=== PATIENT | male | born 1985 | race Caucasian/White ===

== ENCOUNTER 2022-05-10 14:24 | Emergency (ER) | payer OTHER ==
[~2022-05-10] VITALS: Ht 172 cm; Wt 68.0 kg
--- NOTE | 2022-05-10 15:13 | ED General ---
General Chief Complaint: Head/Cervical Problems Stated Complaint: HEADACHES | TROUBLE BREATHING | DARK STOOLS Nursing Triage Note: PT CO OF [facility], STATES HAS L SIDED HEAD PAIN. STARTED FOR A FEW MONTHS AND WORSE THIS AM RATES 9/10 AT THIS X. PT HAS NUMBEROUS OTHER CO FOR A FEW WEEKS, INTERMITTENT C/P, BLACK STOOLS FOR A WEEK OR SO. Source of Information: Patient, Family Exam Limitations: No Limitations History of Present Illness Date Seen by Provider: May 10, 2022 Time Seen by Provider: 15:00 Initial Comments Patient is a 36-year-old male who presents to the emergency room with multiple somatic complaints. He has had headache off and on for months, intermittent chest discomfort, intermittent black stools. He also mentions some weight loss and problems with balance and coordination. No visual complaints no speech difficulties no unilateral numbness weakness or tingling. He has not seen his primary care doctor for the symptoms. He took some Tylenol and ibuprofen given to him by his mother today for his symptoms. He points to the left posterior parietal aspect of his scalp as the location of his headache. The chest pain is nonspecific, nonradiating and not precipitated by exertion. He states he did have chest pain today as well as black stool. He vapes. No medications for hypertension. He has a family history of a maternal uncle who had a brain tumor and he is very concerned that he needs a CAT scan or an MRI to rule this out. He does endorse fever to 101. Occasional congestion. He is COVID vaccinated not fully vaccinated. He mentions that he feels like he has trouble regulating his temperature and this has been going on for a couple of years. His mother is also concerned because his hands "turn reddish-purple" occasionally. All other review of systems reviewed and negative except as stated. Timing/Duration: 1 Week, Other (complaints worse in the last week but intermittent for a month) Severity: Moderate Associated Systoms: Chest Pain, Fever/Chills, Headaches, Malaise, Shortness of Air, Weakness Allergies and Home Medications Allergies Coded Allergies: Sulfa (Sulfonamide Antibiotics) (Verified Allergy, Unknown, 05/10/22) cefaclor (Verified Allergy, Unknown, 05/10/22) Uncoded Allergies: PCN (Allergy, Unknown, 05/10/22) Patient Home Medication List Home Medication List Reviewed: Yes Review of Systems Review of Systems Constitutional: see HPI, fever, malaise Respiratory: no symptoms reported Cardiovascular: chest pain Gastrointestinal: other (black stool) Genitourinary: no symptoms reported Musculoskeletal: no symptoms reported Skin: change in color Psychiatric/Neurological: Headache All Other Systems Reviewed Negative Unless Noted: Yes Past Tevjexf-Sardua-Gabcuu Hx Patient Social History Tobacco Use?: No Use of E-Cig and/or Vaping dev: Yes E-Cig or Vaping type used: Nicotine Use of E-Cig and/or Vaping Tony: Current Everyday User Substance use?: No Alcohol Use?: No Immunizations Up To Date Influenza Vaccine Up-to-Date: No; Not Current First/Initial COVID19 Vaccinat: Y Second COVID19 Vaccination Billy: Y COVID19 Vaccine Chips Screen Tender: CEDRIC Physical Exam Vital Signs Vital Signs - First Documented 05/10/22 14:50 Pulse 117 Resp 18 B/P (MAP) 119/86 (97) Capillary Refill : Less Than 3 Seconds Height, Weight, BMI Height: '" Weight: lbs. oz. kg; 22.00 BMI Method: General Appearance: No Apparent Distress, WD/WN Eyes: Bilateral Eye Normal Inspection, Bilateral Eye PERRL, Bilateral Eye EOMI HEENT: PERRL/EOMI, TMs Normal, Pharynx Normal Neck: Full Range of Motion, Normal Inspection, Non Tender, Supple Respiratory: Lungs Clear, Normal Breath Sounds, No Accessory Muscle Use, No Respiratory Distress Cardiovascular: Regular Rate, Rhythm, Normal Peripheral Pulses Gastrointestinal: Normal Bowel Sounds, Non Tender, Soft Genital/Rectal: Normal Rectal Exam, Heme Negative Stool Back: Normal Inspection Extremity: Normal Capillary Refill, Normal Inspection, Normal Range of Motion, Non Tender, No Calf Tenderness, No Pedal Edema Neurologic/Psychiatric: Alert, Oriented x3, No Motor/Sensory Deficits, Normal Mood/Affect, lead sustainability specialist II-XII Norm as Tested; No Abnormal Cerebellar Tests, No Abnormal Gait, No EOM Palsy, No Facial Droop, No Motor Weakness, No Sensory Deficit; Other (negative romberg; no promator drift. normal finger to nose) Skin: Normal Color, Warm/Dry Progress/Results/Core Measures Suspected Sepsis SIRS Temperature: Pulse: 117 Respiratory Rate: 18 Laboratory Tests 05/10/22 15:15: White Blood Count 11.6H Blood Pressure 119 /86 Mean: 97 Laboratory Tests 05/10/22 15:15: Creatinine 0.78, Platelet Count 262, Total Bilirubin 0.3 Results/Orders Lab Results Laboratory Tests Test 05/10/22 15:15 Range/Units White Blood Count 11.6 H 4.3-11.0 10^3/uL Red Blood Count 3.82 L 4.30-5.52 10^6/uL Hemoglobin 11.9 L 13.3-17.7 g/dL Hematocrit 35 L 40-54 % Mean Corpuscular Volume 91 80-99 fL Mean Corpuscular Hemoglobin 31 25-34 pg Mean Corpuscular Hemoglobin Concent 34 32-36 g/dL Red Cell Distribution Width 13.2 10.0-14.5 % Platelet Count 262 130-400 10^3/uL Mean Platelet Volume 10.5 9.0-12.2 fL Immature Granulocyte % (Auto) 0 % Neutrophils (%) (Auto) 76 H 42-75 % Lymphocytes (%) (Auto) 17 12-44 % Monocytes (%) (Auto) 6 0-12 % Eosinophils (%) (Auto) 0 0-10 % Basophils (%) (Auto) 0 0-10 % Neutrophils # (Auto) 8.8 H 1.8-7.8 10^3/uL Lymphocytes # (Auto) 1.9 1.0-4.0 10^3/uL Monocytes # (Auto) 0.7 0.0-1.0 10^3/uL Eosinophils # (Auto) 0.0 0.0-0.3 10^3/uL Basophils # (Auto) 0.0 0.0-0.1 10^3/uL Immature Granulocyte # (Auto) 0.0 0.0-0.1 10^3/uL Sodium Level 136 135-145 MMOL/L Potassium Level 3.7 3.6-5.0 MMOL/L Chloride Level 105 98-107 MMOL/L Carbon Dioxide Level 22 21-32 MMOL/L Anion Gap 9 5-14 MMOL/L Blood Urea Nitrogen 26 H 7-18 MG/DL Creatinine 0.78 0.60-1.30 MG/DL Estimat Glomerular Filtration Rate 119 BUN/Creatinine Ratio 33 Glucose Level 108 H 70-105 MG/DL Calcium Level 8.9 8.5-10.1 MG/DL Corrected Calcium 9.1 8.5-10.1 MG/DL Total Bilirubin 0.3 0.1-1.0 MG/DL Aspartate Amino Transf (AST/SGOT) 16 5-34 U/L Alanine Aminotransferase (ALT/SGPT) 19 0-55 U/L Alkaline Phosphatase 53 40-136 U/L Total Protein 6.0 L 6.4-8.2 GM/DL Albumin 3.8 3.2-4.5 GM/DL Influenza Type A (RT-PCR) Not Detected Not Detecte Influenza Type B (RT-PCR) Not Detected Not Detecte SARS-CoV-2 RNA (RT-PCR) Not Detected Not Detecte My Orders Orders - MICHELLE VICKERS MD Ed Iv/Invasive Line Start (05/10/22 15:11) Cbc With Automated Diff (05/10/22 15:11) Comprehensive Metabolic Panel (05/10/22 15:11) Covid 19 Inhouse Test (05/10/22 15:11) Fecal Occult Bedside (05/10/22 15:11) Influenza A And B By Pcr (05/10/22 15:11) Isolation Central Supply Req (05/10/22 15:11) Ns Iv 1000 Ml (Sodium Chloride 0.9%) (05/10/22 15:15) Ketorolac Injection (Toradol Injection) (05/10/22 15:15) Ct Head Wo (05/10/22 16:02) Medications Given in ED Current Medications Medications Dose Ordered Sig/Katja Route Start Time Stop Time Status Last Admin Dose Admin Ketorolac Tromethamine 30 mg ONCE ONCE IVP 05/10/22 15:15 05/10/22 15:16 DC 05/10/22 15:23 30 MG Vital Signs/I&O 05/10/22 14:50 Pulse 117 Resp 18 B/P (MAP) 119/86 (97) Capillary Refill : Less Than 3 Seconds Blood Pressure Mean: 97 Progress Note : Time: 15:58 Progress Note Notified by the patient's nurse MARIA D Tejeda that the patient's color became very pale/celaya. He became profusely diaphoretic. This is shortly after the Toradol given. His heart rate went from the 120 range down to 60s. His blood pressure dropped from 120 systolic to 88 systolic. He was profusely diaphoretic, no respiratory distress. He states he just became tingly and weak all over. Mom reports that she was allergic to Toradol. Patient had no hives. No wheezing. No respiratory distress, shortness of breath. No alteration in awareness. IV fluids were hung as the patient initially declined them. Oxygen saturations re mained 100% on room air. Diagnostic Imaging Diagonstic Imaging: CT Comments [facility]. [place], [place] NAME: ISAIAH BURNHAM [facility] REC#: [id number] PT STATUS: REG ER : 1985 PHYSICIAN: MICHELLE VICKERS MD ADMIT DATE: 05/10/22/ER Draft Date of Exam:05/10/22 CT HEAD WO INDICATION: Atypical headache, balance issues. TECHNIQUE: Multiple contiguous axial images were obtained through the brain without the use of intravenous contrast. Auto Exposure Controls were utilized during the CT exam to meet ALARA standards for radiation dose reduction. COMPARISON: Comparison made to prior head CT of 05/11/2021. FINDINGS: There were no extra-axial fluid collections. No intracranial hemorrhage. No intracranial mass or mass effect. No midline shift. The ventricles are normal in size and position. There were no focal parenchymal abnormalities in the brain. Calvarial windows were unremarkable. Paranasal sinuses and mastoid air cells are well aerated. IMPRESSION: Negative noncontrast brain CT. Dictated on workstation # [id number] Dict: 05/10/22 1620 Trans: 05/10/22 1630 [id number] Interpreted by: KARLA GREGORY MD Electronically signed by: Departure Impression Primary Impression: Headache Qualified Codes: R51.9 - Headache, unspecified Disposition: HOME, SELF-CARE Condition: Stable Departure-Patient Inst. Decision time for Depature: 16:42 Referrals: NO,LOCAL PHYSICIAN (PCP) Primary Care Physician Patient Instructions: Migraines (DC), Vasovagal Response Add. Discharge Instructions: You can take [id number] ibuprofen, 3 tablets which is 600 mg every 6 hours with a little food as needed for headache. Drink lots of fluids to stay well-hydrated. You need to follow-up with a primary care provider regarding your symptoms of chest pain, black stool, temperature issues and skin color changes. Return to the emergency department if you have any new, concerning or emergent complaints. MICHELLE VICKERS MD May 10, 2022 15:13
[2022-05-10] MEDS ORDERED: KETOROLAC 30 MG/ML VIAL IVP ONE (15:15)
[2022-05-10] MEDS ORDERED: NS IV 1000 ML 1,000 ML IV SCH (15:15)
[2022-05-10 15:29] LABS: BASOPHILS % (AUTO) 0 % (0-10); EOSINOPHILS % (AUTO) 0 % (0-10); HEMATOCRIT 35 % (40-54); HEMOGLOBIN 11.9 g/dL (13.3-17.7); LYMPHOCYTES # (AUTO) 1.9 10^3/uL (1.0-4.0); LYMPHOCYTES % (AUTO) 17 % (12-44); MEAN CORPUSCULAR HEMOGLOBIN 31 pg (25-34); MEAN CORPUSCULAR HGB CONC 34 g/dL (32-36); MEAN CORPUSCULAR VOLUME 91 fL (80-99); MEAN PLATELET VOLUME 10.5 fL (9.0-12.2); MONOCYTES # (AUTO) 0.7 10^3/uL (0.0-1.0); MONOCYTES % (AUTO) 6 % (0-12); NEUTROPHILS # (AUTO) 8.8 10^3/uL (1.8-7.8); NEUTROPHILS % (AUTO) 76 % (42-75); PLATELET COUNT 262 10^3/uL (130-400); WHITE BLOOD COUNT 11.6 10^3/uL (4.3-11.0)
[2022-05-10 15:37] LABS: ALBUMIN 3.8 GM/DL (3.2-4.5); POTASSIUM 3.7 MMOL/L (3.6-5.0)
[2022-05-10 15:38] LABS: CALCIUM 8.9 MG/DL (8.5-10.1)
[2022-05-10 15:41] LABS: BILIRUBIN,TOTAL 0.3 MG/DL (0.1-1.0)
[2022-05-10 15:43] LABS: CREATININE SERUM 0.78 MG/DL (0.60-1.30)
--- NOTE | 2022-05-10 16:31 | Diagnostic Imaging Report ---
INDICATION: Atypical headache, balance issues. TECHNIQUE: Multiple contiguous axial images were obtained through the brain without the use of intravenous contrast. Auto Exposure Controls were utilized during the CT exam to meet ALARA standards for radiation dose reduction. COMPARISON: Comparison made to prior head CT of 05/11/2021. FINDINGS: There were no extra-axial fluid collections. No intracranial hemorrhage. No intracranial mass or mass effect. No midline shift. The ventricles are normal in size and position. There were no focal parenchymal abnormalities in the brain. Calvarial windows were unremarkable. Paranasal sinuses and mastoid air cells are well aerated. IMPRESSION: Negative noncontrast brain CT. Dictated by: Dictated on workstation # [id number]
[2022-05-10 17:00] VITALS: BP 133/85
== END 2022-05-10 17:00 | disposition home or self-care (01) ==
LOC: ER 14:29
DX: R51.9 Headache, unspecified (principal); R61 Generalized hyperhidrosis; F17.290 Nicotine dependence, other tobacco product, uncomplicated; Z20.822 Contact with and (suspected) exposure to COVID-19
CPT/HCPCS: 36415; 70450; 80053; 82274; 85025; 87636